=== PATIENT | female | born 1965 | race African-American/Black ===

== ENCOUNTER → 2016-11-10 | Outpatient (CLI) | payer OTHER ==
[~2016-11-10] MED LIST: AMITRIPTYLINE H25 MG PO; BENZONATATE PO; BISOPROLOL HCTZ; BISOPROLOL HCTZ PO; FLEXERIL PO; FLEXERIL10 MG PO; HEARTBURN RELIE75 M2 PO; LORTAB 10-3251 EACH PO; MEDROL PO; MOTRIN; MUCINEX ER PO; NAPROSYN500 MG PO; NORFLEX100 M1 PO; PREDNISONE PO; PROCARDIA10 MG PO; TYLENOL #3 PO; VICODIN 5/500 T1 TAB PO; ZYRTEC10 M1 PO; [UNRECOGNIZED DRUG - OTHER]
--- NOTE | ~2016-11-10 | MR104 ---
[facility] A Service of [facility] & [facility] / [facility] RADIOLOGY TEXT RESULTS PATIENT: DEAN VASQUEZ LOCATION: [facility] : 69 UNIT #: [id number] AGE: [address]: Hilario Palomares MD SEX: F ORDER DR: [id number] [address] [address] [id number] O MR#: [id number] Acc #: [id number] NAME: DEAN VASQUEZ : 1965 SEX: F STUDY DATE/TIME: 11/10/2016 17:59 UNIT: [facility] ROOM: STUDY DESCRIPTION: MR Knee Wo Contrast Rt Attending Physician: Hilario Palomares M.D. Referring Physician: Hilario Palomares M.D. Ordering Physician: Hilario Palomares M.D. Primary Care Physician: Aniyah Franks M.D. MRI CENTER REPORT This report is preliminary unless electronic signature is present. EXAM MRI of the right knee, 11/10/2016 COMPARISON MRI right knee 08/31/2009, MRI right knee 01/08/2015, standing AP bilateral knee radiographs 11/08/2014. 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 History sheet states remote history of fall in October 2007. Also injured walking dog in June 2014 approximately. No new trauma since 01/08/2015. No knee surgery. Continued persistent knee pain especially in and around the patella for 7 years. FINDINGS There is a [id number]-fm-[id number] joint effusion without a popliteal cyst. The effusion has developed since 01/08/2015. There is patellofemoral joint space narrowing without malalignment. Moderate grade chondromalacia lateral patellar facet appears stable. There is new low grade chondromalacia of the median ridge of the patella with superficial fissuring. Chondromalacia of the inferior femoral trochlear groove noted on 01/08/2015 has a matured appearance and appears more defined. No new femoral trochlear chondromalacia is noted. Quadriceps and patellar tendons are intact. Cruciate ligaments are normal. The lateral meniscus, lateral collateral ligament complex, and popliteus tendon are intact. Articular cartilage of the lateral compartment is normal. The patient has developed a longitudinal mildly complex tear of the STS. [facility] A Service of [facility] & [facility] / [facility] RADIOLOGY TEXT RESULTS PATIENT: DEAN VASQUEZ LOCATION: [facility] : 69 UNIT #: [id number] AGE: [address]: Hilario Palomares MD SEX: F ORDER DR: posterior body and midbody of the medial meniscus. An obliquely oriented radial parrot beak tear in the mid body progresses into an oblique undersurface tear in the posterior body and horn. There may be a second small free margin tear in the posterior horn. There is no displaced flap or fragment. There is progressive medial compartment joint space narrowing with meniscal subluxation. MCL bursitis is noted. The MCL is intact. There is [id number]-ay-[id number] grade chondromalacia of the weightbearing peripheral medial tibial plateau. There is no marrow lesion or fracture. A small likely cartilaginous loose body in the posterior central joint space measures 6.0 mm and is not seen on the prior study. IMPRESSION 1. Compared to prior studies detailed above, there has been development of a complex longitudinal tear of the medial meniscus detailed above and mild medial compartment arthrosis with the MCL bursitis. 2. Patellofemoral compartment chondromalacia with only minimal progression in the patella since 01/08/2015. 3. New joint effusion. 4. New 6.0 mm chondral loose body posterior to the mid PCL. 5. Cruciate ligaments and lateral compartment are within normal limits. Dictated by... Vikki Carcamo M.D. THIS IS AN ELECTRONICALLY VERIFIED REPORT Vikki Carcamo M.D. at 11/12/2016 8:33 AM LILIAN/maximo TD: 11/11/2016 18:33 JOB #: [id number] MRI CENTER REPORT Page 1 of 1
== END | disposition home or self-care (01) ==
LOC: SMRI 10-31 13:45
DX: M22.41 Chondromalacia patellae, right knee (principal); S83.241A Other tear of medial meniscus, current injury, right knee, initial encounter; M17.11 Unilateral primary osteoarthritis, right knee; M70.51 Other bursitis of knee, right knee; M25.461 Effusion, right knee; M23.41 Loose body in knee, right knee
CPT/HCPCS: 73721